=== PATIENT | female | born 1975 | race Caucasian/White ===

== ENCOUNTER 2017-01-21 10:53 | Emergency (ER) | payer OTHER ==
[2017-01-21 11:13] VITALS: BP 127/85
--- NOTE | 2017-01-21 11:29 | UC ---
Respiratory Complaint HPI - HPI Summary HPI Summary: Cough for 4 days - History of Current Complaint Chief Complaint: UCRespiratory Stated Complaint: COUGH BILATERAL EARS SINUS Time Seen by Provider: 01/21/17 11:26 Hx Obtained From: Patient Hx Last Menstrual Period: this week ?: No Onset/Duration: Sudden Onset, Lasting Days - 4, Still Present Timing: Constant Severity Initially: Moderate Severity Currently: Moderate Pain Intensity: 6 Pain Scale Used: 0-10 Numeric Character: Cough: Nonproductive Aggravating Factors: Nothing Alleviating Factors: Nothing Associated Signs And Symptoms: Positive: URI, Nasal Congestion, Sinus Discomfort - Allergies/Home Medications Allergies/Adverse Reactions: Allergies Allergy/AdvReac Type Severity Reaction Status Date / Time No Known Allergies Allergy Verified 01/21/17 11:13 Home Medications: Home Medications Otc Cold Remedies 1 dose PO QID PRN 01/21/17 [History Confirmed 01/21/17] PMH/Surg Hx/FS Hx/Imm Hx Previously Healthy: No Psychological History: Depression - Surgical History Surgical History: Yes Surgery Procedure, Year, and Place: D&C. tubal ligation - Family History Known Family History: Positive: None - Social History Occupation: Employed Full-time Lives: With Family Alcohol Use: None Substance Use Type: None Smoking Status (MU): Never Smoked Tobacco Review of Systems Constitutional: Negative Skin: Negative Eyes: Negative ENT: Ear Ache, Nasal Discharge, Sinus Congestion, Sinus Pain/Tenderness Respiratory: Cough Cardiovascular: Negative Gastrointestinal: Negative Genitourinary: Negative Motor: Negative Neurovascular: Negative Musculoskeletal: Negative Neurological: Negative Psychological: Negative Is Patient Immunocompromised?: No All Other Systems Reviewed And Are Negative: Yes Physical Exam Triage Information Reviewed: Yes Appearance: Well-Appearing, No Pain Distress, Well-Nourished Vital Signs: Initial Vital Signs Temp 98.3 F 01/21/17 11:03 Pulse 84 01/21/17 11:03 Resp 22 01/21/17 11:03 BP 127/85 01/21/17 11:03 Pulse Ox 100 01/21/17 11:03 Vital Signs Reviewed: Yes Eye Exam: Normal Eyes: Positive: Conjunctiva Clear ENT Exam: Normal ENT: Positive: Normal ENT inspection, Hearing grossly normal, Pharynx normal, Nasal congestion, Nasal drainage, TMs normal. Negative: Tonsillar swelling, Tonsillar exudate, Trismus, Muffled/hoarse voice Dental Exam: Normal Neck exam: Normal Neck: Positive: Supple, Nontender, No Lymphadenopathy Respiratory Exam: Normal Respiratory: Positive: Chest non-tender, Lungs clear, Normal breath sounds, No respiratory distress, No accessory muscle use Cardiovascular Exam: Normal Cardiovascular: Positive: RRR, No Murmur, Pulses Normal, Brisk Capillary Refill Musculoskeletal Exam: Normal Musculoskeletal: Positive: Strength Intact, ROM Intact, No Edema Neurological Exam: Normal Neurological: Positive: Alert, Muscle Tone Normal Psychological Exam: Normal Skin Exam: Normal UC Diagnostic Evaluation - Laboratory O2 Sat by Pulse Oximetry: 100 Respiratory Course/Dx - Course Course Of Treatment: zyrtec d and flonase, tylenol, ibuprofen should sx continue for 7-10 or worsen with fever you may start antibiodics, follow with pcp should symptoms worsen or fail to improve - Differential Dx/Diagnosis Differential Diagnosis/HQI/PQRI: Bronchitis, Laryngitis, Lower Resp Infection, Sinusitis Provider Diagnoses: Rhinnosinusitis Discharge - Discharge Plan Condition: Stable Disposition: HOME Prescriptions: Amoxicillin/Clavulanate TAB* [Augmentin TAB 875*] 875 mg PO BID #20 tab Cetirizine-Pseudoephedrine [Zyrtec-D Allergy/Congesti] 1 tab PO BID PRN #30 tab PRN Reason: cough/nasal congestion Fluticasone NASAL SPRAY 50MCG* [Flonase NASAL SPRAY 50MCG*] 2 spray BOTH NARES DAILY #1 btl Patient Education Materials: Rhinosinusitis (ED), How to Use Nasal [place] (ED) Forms: *Work Release Referrals: Alea Mann PA [Primary Care Provider] - If Needed Additional Instructions: If not improving or worsens after Tuesday January 24, 2017 go a head and start antibiotics
== END 2017-01-21 11:45 | disposition home or self-care (01) ==
LOC: UCCORT 10:53
DX: J32.9 Chronic sinusitis, unspecified (principal); F32.9 Major depressive disorder, single episode, unspecified
CPT/HCPCS: 99202; G0463

== ENCOUNTER 2017-07-24 09:17 | Day surgery (SDC) | payer OTHER ==
[~2017-07-24 09:17] MED LIST: Buffered Lidocaine 0.9% SYRIN* 5 ML/SYR SYRINGE INTRADERM ONE
[2017-07-24] MEDS ORDERED: Bupivacaine 0.25% SDV* 30 ML ONE (09:30)
[2017-07-24] MEDS ORDERED: Lidocain 1% EPI 1:100,000 * 30 ML MDV ONE (09:30)
[2017-07-24] MEDS ORDERED: Midazolam* 1 MG/ML 2 ML VIAL (2 MG) ONE (10:20)
[2017-07-24] MEDS ORDERED: fentaNYL* 50 MCG/ML 2 ML VIAL (100 MCG VIAL) ONE (10:20)
[2017-07-24] MEDS ORDERED: Naloxone* 0.4 MG/ML 1 ML VIAL IV PRN (10:57)
[2017-07-24] MEDS ORDERED: Propofol* 10 MG/ML 20 ML BTL IV PUSH ONE (11:04)
[2017-07-24] MEDS ORDERED: Lidocaine 2% PF * 5 ML VIAL ONE (11:04)
[2017-07-24 11:16] VITALS: BP 110/77
--- NOTE | 2017-07-25 01:16 | OP ---
DATE OF OPERATION: 07/24/17 - [facility] DATE OF : 77 SURGEON: William Raymond MD GAS PIPE LAYER: CRYSTAL Saavedra ANESTHESIOLOGIST: Dr. Gonzalez. ANESTHESIA: Local MAC. PRE-OP DIAGNOSIS: Left carpal tunnel syndrome. POST-OP DIAGNOSIS: Left carpal tunnel syndrome. OPERATIVE PROCEDURE: Left open carpal tunnel release. INDICATIONS: Ira has clinical carpal tunnel syndrome. We talked about risks and benefits. She wanted to proceed with surgery. ESTIMATED BLOOD LOSS: 2 mL. COMPLICATIONS: None. FINDINGS: As expected. DESCRIPTION OF PROCEDURE: Ira was seen in the preoperative holding area. The correct side, site, and procedure were identified. We came back to the operating room where the arm was prepped and draped in the usual fashion. A time-out was performed. I had already injected the operative site with 0.25% Marcaine. So, I made a 2 to 3 cm longitudinal incision in a standard location for an open carpal tunnel release. This was under a tourniquet at 250 mmHg. Dissection was carried down through the subcutaneous tissue and palmar fascia. I released the transverse carpal ligament from distal to proximal just off the radial aspect of the hook of the hamate. Proximally, the subcutaneous tissue and fascia was released and under direct visualization, the remainder of the transverse carpal ligament and distal antebrachial fascia was released with the tenotomy scissors under direct visualization to the level several centimeters proximal to the wrist flexion crease. I then checked the release, it was complete distally and proximally. There was absolutely no compression on the nerves. We irrigated out the wound. Skin was closed with 4-0 nylon suture. The wound was dressed with Xeroform, 4x4, sterile Webril and an Zohaib bandage. She was woken up and taken to the recovery room in stable condition. [id number]/CPS #: [id number] MTDD
== END 2017-07-24 11:27 | disposition home or self-care (01) ==
LOC: OREAST 09:17
PROVIDERS: ATTEND Orthopaedic Surgery Hand Surgery
DX: G56.02 Carpal tunnel syndrome, left upper limb (principal); F41.9 Anxiety disorder, unspecified; M19.90 Unspecified osteoarthritis, unspecified site; M54.9 Dorsalgia, unspecified
CPT/HCPCS: J2250; J2704; J3010

== ENCOUNTER 2019-02-25 09:37 | Emergency (ER) | payer OTHER ==
[2019-02-25 09:53] VITALS: BP 130/80
--- NOTE | 2019-02-25 10:32 | UC ---
Skin Complaint HPI - HPI Summary HPI Summary: Pt presents c/o gradual onset of right ankle swelling. Pt has hx of athletes foot that she has had over a year and was told by PCP was not treatable. - History of Current Complaint Chief Complaint: UCLowerExtremity Time Seen by Provider: 02/25/19 10:18 Stated Complaint: RT ANKLE COMPLAINT Hx Obtained From: Patient Hx Last Menstrual Period: unknown-tubul ligation ?: No Onset/Duration: Gradual Onset, Lasting Days, Still Present Skin Exposure Onset/Duration: Days Ago Timing: Constant Onset Severity: Mild Current Severity: Mild Pain Intensity: 6 Location: Discrete - right medial malleolus Character: Swelling Aggravating Factor(s): Touch Alleviating Factor(s): Nothing Associated Signs & Symptoms: Positive: Rash - on bilateral feet Related History: Other: - 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 pt states that it is "bad" and she scratches at it and has numerous scabs in different stages of healing. - Allergy/Home Medications Allergies/Adverse Reactions: Allergies Allergy/AdvReac Type Severity Reaction Status Date / Time No Known Allergies Allergy Verified 02/25/19 09:53 PMH/Surg Hx/FS Hx/Imm Hx Previously Healthy: Yes - Surgical History Surgical History: Yes Surgery Procedure, Year, and Place: Tubal ligation 2003. LAPROSCOPIC SURGERY FOR CERVICAL CARCINOMA - 2003. D&C 1995. Tonsillectomy 1982 - Family History Known Family History: Positive: Cardiac Disease - Social History Occupation: Employed Full-time Lives: With Family Alcohol Use: None Substance Use Type: None Smoking Status (MU): Never Smoked Tobacco Have You Smoked in the Last Year: No Household Exposure Type: Cigarettes Review of Systems All Other Systems Reviewed And Are Negative: Yes Constitutional: Positive: Negative Skin: Positive: Rash, Other - chronic open wounds from scratching on bilateral feet. Eyes: Positive: Negative ENT: Positive: Negative Respiratory: Positive: Negative Cardiovascular: Positive: Negative Gastrointestinal: Positive: Negative Genitourinary: Positive: Negative Motor: Positive: Negative Neurovascular: Positive: Negative Musculoskeletal: Positive: Edema - right medial malleolus Neurological: Positive: Negative Psychological: Positive: Negative Is Patient Immunocompromised?: No Physical Exam Triage Information Reviewed: Yes Appearance: Well-Appearing - pt states that she is embarrassed by her feet. Vital Signs: Initial Vital Signs Temp 98.1 F 02/25/19 09:47 Pulse 82 02/25/19 09:47 Resp 16 02/25/19 09:47 BP 130/80 02/25/19 09:47 Pulse Ox 100 02/25/19 09:47 Vital Signs Reviewed: Yes Eye Exam: Normal ENT: Positive: Hearing grossly normal Respiratory: Positive: No respiratory distress Musculoskeletal: Positive: Edema @ - mild swelling right medial malleolus Neurological Exam: Normal Psychological Exam: Normal Skin: Positive: Rashes - bialteral feet. Pt would only expose the medial aspect of her right heel. She states both feet are similar with chronic athletes foot and multiple scabs scattered in various stages of healing. Course/Dx - Course Course Of Treatment: I discussed with the pt the need to treat and mange her athletes foot and the high likelihood that the swelling in her right ankle was a result of the chronic infection in her skin of her feet. Pt verbalized understanding and agreed to plan of care. - Differential Diagnoses - Skin Complaint Differential Diagnoses: Cellulitis, Contact Dermatitis, Tinea - Diagnoses Provider Diagnosis: Athlete's foot on right, Right ankle swelling Discharge ED - Sign-Out/Discharge Documenting (check all that apply): Patient Departure All imaging exams completed and their final reports reviewed: No Studies - Discharge Plan Condition: Stable Disposition: HOME Prescriptions: Clotrimazole 1% TOPICAL (NF) [Lotrimin 1% TOPICAL (NF)] 1 applic TOPICAL Q12H # 1 tube Fluconazole 100 MG TAB* [Diflucan 100 MG TAB*] 100 mg PO DAILY #7 tab Patient Education Materials: Athlete's Foot (ED) Referrals: [facility] [Outside] - If Needed Fredi Novak MD [Medical Doctor] - Latricia Hernandez MD [Medical Doctor] - Bronson Hernandez PA [Primary Care Provider] - Anu Michel [Medical Doctor] - - Billing Disposition and Condition Condition: STABLE Disposition: Home
== END 2019-02-25 10:41 | disposition home or self-care (01) ==
LOC: UCCORT 09:37
DX: B35.3 Tinea pedis (principal); M25.471 Effusion, right ankle; R21 Rash and other nonspecific skin eruption; S91.302A Unspecified open wound, left foot, initial encounter; S91.301A Unspecified open wound, right foot, initial encounter; X58.XXXA Exposure to other specified factors, initial encounter; Y92.9 Unspecified place or not applicable
CPT/HCPCS: 99212; G0463